=== PATIENT | male | born 1965 | race Caucasian/White ===

== ENCOUNTER 2019-03-26 12:23 | Emergency (ER) | payer OTHER ==
[~2019-03-26] VITALS: Ht 175.3 cm; Wt 86.2 kg
--- NOTE | 2019-03-26 13:46 | NUR ---
Patient discharged to home in stable conditon. Written and verbal after care instructions given. Patient verbalizes understanding of instructions.
== END 2019-03-26 13:47 | disposition home or self-care (01) ==
LOC: ER 12:29
DX: J40 Bronchitis, not specified as acute or chronic (principal)
CPT/HCPCS: A4663